=== PATIENT | female | born 1980 | race Caucasian/White ===

== ENCOUNTER 2016-12-07 11:12 | Emergency (ER) | payer MEDICAID ==
[~2016-12-07] VITALS: Ht 162.6 cm; Wt 61.0 kg
[2016-12-07 11:16] VITALS: Ht 162.6 cm; Wt 61.0 kg
[2016-12-07] MEDS ORDERED: HYDROCODONE/APAP (5/325) TAB PO ONE (14:00)
[2016-12-07 14:09] LABS: ADD UMIC YES; UR ASCORBIC ACID NEGATIVE (NEGATIVE); UR BACTERIA FEW /HPF (NONE SEEN); UR BILIRUBIN (Dip) NEGATIVE (NEGATIVE); UR BLOOD (Dip) 2+ mg/dL (NEGATIVE); UR CLARITY SLIGHTLY CLOUDY (CLEAR); UR COLOR STRAW (YELLOW); UR GLUCOSE (Dip) NEGATIVE (NEGATIVE); UR KETONES (Dip) NEGATIVE (NEGATIVE); UR LEUKOCYTE ESTERASE (Dip) 3+ Leu/ul (NEGATIVE); UR NITRITE (Dip) POSITIVE (NEGATIVE); UR RBC 14 /HPF (0-5); UR SPECIFIC GRAVITY (Dip) 1.009 (1.003-1.030); UR TOTAL PROTEIN (Dip) 1+ mg/dl (NEGATIVE); UR UROBILINOGEN (Dip) NEGATIVE (NEGATIVE); UR WBC CLUMPS FEW /HPF (NONE SEEN)
--- NOTE | 2016-12-07 14:29 | ERD ---
ER Documentation Chief Complaint Date/Time DATE: 12/07/16 TIME: 14:27 Chief Complaint PAINFUL URINATION, BILATERAL FLANK PAIN HPI This is a 36-year-old female who presents to the emergency department today complaining of burning pain with urination for the past 4 days. She also has some pain in her back. Denies any nausea vomiting fevers or chills. ROS All systems reviewed and are negative except as per history of present illness. Medications Home Meds Active Scripts Ibuprofen* (Motrin*) 600 Mg Tab, 600 MG PO Q6, #30 TAB Prov:DEV CURRY PA-C 12/07/16 Cephalexin* (Keflex*) 500 Mg Capsule, 500 MG PO QID for 7 Days, CAP Prov:DEV CURRY PA-C 12/07/16 Allergies Allergies: Coded Allergies: No Known Allergy (Unverified Allergy, Unknown, 02/10/06) PMhx/Soc Medical and Surgical Hx: pt denies Medical Hx, pt denies Surgical Hx Hx Alcohol Use: No Hx Substance Use: No Hx Tobacco Use: No Physical Exam Vitals Vital Signs Date Time Temp Pulse Resp B/P Pulse Ox O2 Delivery O2 Flow Rate FiO2 12/07/16 11:16 98.7 76 18 141/98 98 Physical Exam Const: No acute distress Head: Atraumatic Eyes: Normal Conjunctiva ENT: Normal External Ears, Nose and Mouth. Neck: Full range of motion..~ No meningismus. Resp: Clear to auscultation bilaterally Cardio: Regular suprapubic tenderness. non distended. Normal bowel sounds no tenderness McBurney's. Skin: No petechiae or rashes Back: No midline or flank. Bilateral flank tenderness. No CVA tenderness. Ext: No cyanosis, or edema Neur: Awake and alert Psych: Normal Mood and Affect Results 24 hrs Laboratory Tests Test 12/07/16 13:42 Urine Color STRAW Urine Clarity SLIGHTLY CLOUDY Urine pH 5.0 Urine Specific [place] 1.009 Urine Ketones NEGATIVEmg/dL Urine Nitrite POSITIVEmg/dL Urine Bilirubin NEGATIVEmg/dL Urine Urobilinogen NEGATIVEmg/dL Urine Leukocyte Esterase 3+Usha/ul Urine Microscopic RBC 14/HPF Urine Microscopic WBC 143/HPF Urine Bacteria FEW/HPF Urine Hemoglobin 2+mg/dL Urine Glucose NEGATIVEmg/dL Urine Total Protein 1+mg/dl Current Medications Medications (Trade) Dose Ordered Sig/Dixie Route PRN Reason Start Time Stop Time Status Last Admin Dose Admin Acetaminophen/ Hydrocodone Bitart ([place] (5/325)) 1 tab ONCE ONCE PO 12/07/16 14:00 12/07/16 14:01 DC 12/07/16 13:55 Procedures/MDM This a 36-year-old female presents emergency department today complaining of burning with urination for the past 4 days. I did obtain a UA UA shows plus leukocyte esterase. Positive nitrites and greater than 143 scopic white blood cells. test negative Symptoms at this time is consistent with urinary tract infection. She is afebrile and otherwise well-appearing. She has no CVA tenderness. Low suspicion for nephrolithiasis or pyelonephritis at this time. Not feel that the patient requires further workup or imaging at this time. Given a prescription for Keflex, Motrin for home. At this time the patient is stable for discharge and outpatient management. Patient should follow up with their PCP in the next 1-2 days. They may return to the emergency department sooner for any persistent or worsening of symptoms. Patient understood and agreed with the plan. Departure Diagnosis: Primary Impression: UTI (urinary tract infection) Urinary tract infection type: site unspecified Hematuria presence: with hematuria Qualified Code: N39.0 - Urinary tract infection with hematuria, site unspecified Condition: DEV Bonner PA-C Dec 07, 2016 14:29
[2016-12-07] MEDS ORDERED: CEPH-443 PO (14:30)
[2016-12-07] MEDS ORDERED: IBUP-1542 PO (14:31)
== END 2016-12-07 15:02 | disposition home or self-care (01) ==
LOC: FTE 11:12
DX: N39.0 Urinary tract infection, site not specified (principal)
CPT/HCPCS: 81001; Z7502; Z7610; 99283

== ENCOUNTER 2016-12-25 09:08 | Emergency (ER) | payer MEDICAID ==
[~2016-12-25] VITALS: Wt 70.0 kg
[~2016-12-25 09:08] MED LIST: CEPH-443 PO; IBUP-1542 PO
[2016-12-25] MEDS ORDERED: IBUPROFEN 800 MG TAB PO ONE (10:30)
[2016-12-25 10:34] LABS: ADD UMIC NO; UR ASCORBIC ACID NEGATIVE (NEGATIVE); UR BILIRUBIN (Dip) NEGATIVE (NEGATIVE); UR BLOOD (Dip) NEGATIVE (NEGATIVE); UR CLARITY CLEAR (CLEAR); UR COLOR COLORLESS (YELLOW); UR GLUCOSE (Dip) NEGATIVE (NEGATIVE); UR KETONES (Dip) NEGATIVE (NEGATIVE); UR LEUKOCYTE ESTERASE (Dip) NEGATIVE Leu/ul (NEGATIVE); UR NITRITE (Dip) NEGATIVE (NEGATIVE); UR SPECIFIC GRAVITY (Dip) 1.002 (1.003-1.030); UR TOTAL PROTEIN (Dip) NEGATIVE (NEGATIVE); UR UROBILINOGEN (Dip) NEGATIVE (NEGATIVE)
[2016-12-25 11:09] LABS: BASOPHILS % 0.7 % (0.0-2.0); EOSINOPHILS % 0.5 % (0.0-7.0); HEMATOCRIT 42.8 % (37.0-47.0); HEMOGLOBIN 14.5 g/dl (12.0-16.0); LYMPHOCYTES # 2.5 10^3/ul (0.8-2.9); MEAN CORPUSCULAR HEMOGLOBIN 29.7 pg (29.0-33.0); MEAN CORPUSCULAR HGB CONC 33.9 g/dl (32.0-37.0); MEAN CORPUSCULAR VOLUME 87.7 fl (82.0-101.0); MONOCYTE # 0.4 10^3/ul (0.3-0.9); MONOCYTES % 6.9 % (0.0-11.0); NEUTROPHIL # 3.2 10^3/ul (1.6-7.5); NEUTROPHILS % 51.6 % (39.0-77.0); PLATELET COUNT 392 10^3/UL (140-415); RED BLOOD COUNT 4.88 10^6/ul (4.20-5.40); RED CELL DISTRIBUTION WIDTH 11.9 % (11.5-14.5); WHITE BLOOD COUNT 6.1 10^3/ul (4.8-10.8)
[2016-12-25 11:31] LABS: ALBUMIN 4.8 g/dl (3.3-4.9); ALBUMIN/GLOBULIN RATIO 1.29; BILIRUBIN,INDIRECT 0.5 mg/dl (0-1.1); BILIRUBIN,TOTAL 0.5 mg/dl (0.2-1.3); CREATININE 0.71 mg/dl (0.44-1.00); POTASSIUM 3.8 mmol/L (3.5-5.1); TOTAL PROTEIN 8.5 g/dl (6.1-8.1)
--- NOTE | 2016-12-25 11:47 | ERD ---
ER Documentation Chief Complaint Date/Time DATE: 12/25/16 TIME: 11:40 Chief Complaint FLANK/BACK PAIN X 1 DAYS HPI This is a 36-year-old female presents the emergency department today complaining of right-sided back pain that started yesterday morning.States she does have some mild burning with urination.Denies any fevers or chills, nausea or vomiting.States she took all of her medication for her urinary tract infection. ROS All systems reviewed and are negative except as per history of present illness. Medications Home Meds Active Scripts Cyclobenzaprine Hcl* (Cyclobenzaprine Hcl*) 10 Mg Tablet, 10 MG PO QHS, #7 TAB Prov:DEV CURRYC 12/25/16 Naproxen* (Naprosyn*) 500 Mg Tablet, 500 MG PO BID Y for PAIN AND/OR INFLAMMATION, #30 TAB Prov:DEV CURRYC 12/25/16 Tramadol HCl (Tramadol HCl) 50 Mg Tablet, 50 MG PO Q4 Y for PAIN, #20 TAB Prov:DEV CURRYC 12/25/16 Ibuprofen* (Motrin*) 600 Mg Tab, 600 MG PO Q6, #30 TAB Prov:DEV CURRYC 12/07/16 Cephalexin* (Keflex*) 500 Mg Capsule, 500 MG PO QID for 7 Days, CAP Prov:DEV CURRY-C 12/07/16 Allergies Allergies: Coded Allergies: No Known Allergy (Unverified Allergy, Unknown, 02/10/06) PMhx/Soc Medical and Surgical Hx: pt denies Medical Hx, pt denies Surgical Hx History of Surgery: No Anesthesia Reaction: No Hx Neurological Disorder: No Hx Respiratory Disorders: No Hx Cardiac Disorders: No Hx Psychiatric Problems: No Hx Alcohol Use: No Hx Substance Use: No Hx Tobacco Use: No Smoking Status: Never smoker Physical Exam Vitals Vital Signs Date Time Temp Pulse Resp B/P Pulse Ox O2 Delivery O2 Flow Rate FiO2 12/25/16 09:09 98.0 79 18 129/89 99 Physical Exam Const: NAD Head: Atraumatic Eyes: Normal Conjunctiva ENT: Normal External Ears, Nose and Mouth. Neck: Full range of motion..~ No meningismus. Resp: Clear to auscultation bilaterally Cardio: Regular rate and rhythm, no murmurs Abd: Soft, non tender, non distended. Normal bowel sounds Skin: No petechiae or rashes Back: Lumbar spine no midline Tenderness. Right-sided paraspinal tenderness. No CVA tenderness. Ext: No cyanosis, or edema Neur: Awake and alert Psych: Normal Mood and Affect Result Diagram: 12/25/16 1030 12/25/16 1030 Results 24 hrs Laboratory Tests Test 12/25/16 10:15 12/25/16 10:30 Urine Color COLORLESS Urine Clarity CLEAR Urine pH 6.0 Urine Specific [place] 1.002 Urine Ketones NEGATIVEmg/dL Urine Nitrite NEGATIVEmg/dL Urine Bilirubin NEGATIVEmg/dL Urine Urobilinogen NEGATIVEmg/dL Urine Leukocyte Esterase NEGATIVELeu/ul Urine Hemoglobin NEGATIVEmg/dL Urine Glucose NEGATIVEmg/dL Urine Total Protein NEGATIVEmg/dl White Blood Count 6.110^3/ul Red Blood Count 4.8810^6/ul Hemoglobin 14.5g/dl Hematocrit 42.8% Mean Corpuscular Volume 87.7fl Mean Corpuscular Hemoglobin 29.7pg Mean Corpuscular Hemoglobin Concent 33.9g/dl Red Cell Distribution Width 11.9% Platelet Count 83475^3/UL Mean Platelet Volume 10.0fl Neutrophils % 51.6% Lymphocytes % 40.0% Monocytes % 6.9% Eosinophils % 0.5% Basophils % 0.7% Nucleated Red Blood Cells % 0.0/100WBC Neutrophils # 3.210^3/ul Lymphocytes # 2.510^3/ul Monocytes # 0.410^3/ul Eosinophils # 0.010^3/ul Basophils # 0.010^3/ul Nucleated Red Blood Cells # 0.010^3/ul Sodium Level 141mmol/L Potassium Level 3.8mmol/L Chloride Level 104mmol/L Carbon Dioxide Level 26mmol/L Anion Gap 15 Blood Urea Nitrogen 13mg/dl Creatinine 0.71mg/dl Glucose Level 81mg/dl Calcium Level 10.0mg/dl Total Bilirubin 0.5mg/dl Direct Bilirubin 0.00mg/dl Indirect Bilirubin 0.5mg/dl Aspartate Amino Transf (AST/SGOT) 24IU/L Alanine Aminotransferase (ALT/SGPT) 37IU/L Alkaline Phosphatase 100IU/L Total Protein 8.5g/dl Albumin 4.8g/dl Globulin 3.70g/dl Albumin/Globulin Ratio 1.29 Current Medications Medications (Trade) Dose Ordered Sig/Dixie Route PRN Reason Start Time Stop Time Status Last Admin Dose Admin Ibuprofen (Motrin) 800 mg ONCE ONCE PO 12/25/16 10:30 12/25/16 10:31 DC 12/25/16 10:22 Procedures/MDM This a 36-year-old female who presents the emergency department today for right- sided flank pain and some mild pain with urination. Upon review of patient's medical records I did see this patient with similar complaints on November 06, 2016 and patient had a significant urinary tract infection at that time. She is given a prescription for Keflex. Patient indicates she has taken all that medication and completed the course. Patient states that the pain went away for 5-6 days but this pain recently returned. Given patient's complaints and similar symptoms I did obtain laboratory work as well as a full UA after speaking with Dr. Gordon. Laboratory workup shows no elevated white blood cell count. She is not anemic. Platelets are within normal limits. Electro lites are within normal limits. Glucose within normal limits. Liver enzymes are within normal limits. UA is negative for infection or hematuria.Low suspicion for pyelonephritis, nephrolithiasis. test is negative. Patient has no abdominal pain on physical exam and a do not feel that she requires further workup or imaging at this time. 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 She has no midline tenderness and I do not feel she requires x-rays at this time. There is no evidence of cauda equina or abscess. Patient is afebrile and otherwise well- appearing. She has no loss of bowel or bladder control. Patient was given Motrin here in the emergency department as she was driving herself. I will give the patient a short course of tramadol, Naprosyn and Flexeril for home. At this time the patient is stable for discharge and outpatient management. Patient should follow up with their PCP in the next 1-2 days. They may return to the emergency department sooner for any persistent or worsening of symptoms. Patient understood and agreed with the plan. Discussed the patient with Dr. Gordon and he is in agreement with the plan. Departure Diagnosis: Primary Impression: Back pain Back pain location: low back pain Chronicity: unspecified Back pain laterality: right Sciatica presence: without sciatica Qualified Code: M54.5 - Right-sided low back pain without sciatica, unspecified chronicity Condition: DEV Bonner PA-C Dec 25, 2016 11:47
[2016-12-25] MEDS ORDERED: CYCL-319 PO (11:48)
[2016-12-25] MEDS ORDERED: NAPR-260 PO (11:48)
[2016-12-25] MEDS ORDERED: TRAM50TA2 PO (11:48)
[2016-12-25 12:11] VITALS: BP 132/78; PULSE 78; RESP 18; TEMP 98.2
== END 2016-12-25 12:11 | disposition home or self-care (01) ==
LOC: FTE 09:08
DX: M54.5 Low back pain (principal)
CPT/HCPCS: 36415; 80053; 81003; 85025; 87086; Z7502; Z7610; 99284

== ENCOUNTER 2017-05-04 19:11 | Emergency (ER) | END 2017-05-05 00:48 | disposition left against medical advice (07) ==